=== PATIENT | male | born 1960 | race African-American/Black ===

== ENCOUNTER 2021-04-05 13:42 | Emergency (ER) | payer BC ==
[~2021-04-05] VITALS: Ht 172.7 cm; Wt 70.0 kg
[~2021-04-05 13:42] MED LIST: GLUCOPHAGE; INSULIN
[2021-04-05 14:03] VITALS: BP 147/81
[2021-04-05] MEDS ORDERED: FERR325T6 PO (14:12)
[2021-04-05] MEDS ORDERED: APIX5TAB PO (14:12)
[2021-04-05] MEDS ORDERED: ASPI-1406 PO (14:12)
[2021-04-05] MEDS ORDERED: SOTA80TA PO (14:12)
[2021-04-05 16:13] LABS: BASOPHILS % 0.5 % (0.0-2.0); EOSINOPHILS % 2.3 % (0.0-5.0); HEMATOCRIT. 38.7 % (42.0-52.0); MEAN CORPUSCULAR HEMOGLOBIN 29.9 pg (28.0-32.0); MEAN CORPUSCULAR VOLUME 89.3 fL (80.0-94.0); MEAN PLATELET VOLUME 8.9 fl (7.4-10.4); MONOCYTES % 11.2 % (2.0-8.0); PLATELET 188 x1000/uL (130-400); RED BLOOD CELL COUNT 4.33 mill/uL (4.7-6.1); RED CELL DISTRIBUTION WIDTH 13.7 % (11.6-14.6)
[2021-04-05 16:23] LABS: CHLORIDE 99 mEq/L (98-107)
== END 2021-04-05 23:37 | disposition left against medical advice (07) ==
LOC: ER 13:42
DX: R06.00 Dyspnea, unspecified (principal); E11.9 Type 2 diabetes mellitus without complications; I49.9 Cardiac arrhythmia, unspecified
CPT/HCPCS: 36415; 71045; 80053; 85025; 93005; 99285